=== PATIENT | male | born 1960 | race Caucasian/White ===

== ENCOUNTER 2019-12-25 17:44 | Inpatient (IN) | payer BC, SELFPAY ==
[2019-12-25 17:53] VITALS: BP 126/79; PULSE 122; RESP 18; TEMP 38.9; O2SAT 97; BMI 23.1
--- NOTE | 2019-12-25 18:18 | XR_ITS ---
WS: [id number] EXAM: AP CHEST: PORTABLE UPRIGHT DATE OF EXAM: 12/25/2019, 1818 hours COMPARISON: NONE HISTORY: Patient is 59 years old with fever. FINDINGS: The cardiac silhouette is normal in size. The mediastinal contours are normal. The pulmonary vas cularity is normal. The lungs are clear of infiltrate. There is no effusion or pneumothorax. No ac kimani bony abnormality is seen. Old postop fusion changes lower cervical spine. XR/XR chest 1V portable [id number] IMPRESSION: No acute pulmonary disease.
[2019-12-25 18:34] LABS: Basophils % 0.2 %; Eosinophils % 0.2 %; Hematocrit 33.9 % (42.0-52.0); Hemoglobin 11.2 g/dL (11.7-16.6); Lymphocytes # 0.4 10^3/uL (0.8-4.8); Lymphocytes % 5.3 %; Mean Corpuscular Volume 93.9 fL (80-94); Mean Platelet Volume 9.8 fL (7.4-10.4); Monocytes # 0.3 10^3/uL (0.2-0.9); Monocytes % 4.6 %; Neutrophils # 5.88 10^3/uL (1.8-7.7); Neutrophils % 89.4 %; Nucleated Red Blood Cells % 0 %; Platelet Count 201 10^3/cmm (130-400); Red Blood Count 3.61 10^6/uL (4.1-5.3); Red Cell Distribution Width 13.1 % (12.1-15.1); White Blood Count 6.6 10^3/uL (4.0-10.0)
[2019-12-25] MEDS: acetaminophen 500 mg Tablet 1000 MG PO (18:40)
[2019-12-25] MEDS: sodium chloride 0.9% 1,000 ML 999 ML IV (18:41)
[2019-12-25 19:04] LABS: Alanine Aminotransferase 21 U/L (0-41); Albumin Level 3.2 g/dL (3.5-5.2); Alkaline Phosphatase 159 IU/L (40-130); Anion Gap 15.7 (5-19); Aspartate Amino Transferase 12 U/L (0-40); Blood Urea Nitrogen 18 mg/dL (6-20); Calcium 8.6 mg/dL (8.5-10.5); Carbon Dioxide 20 mmol/L (22-29); Chloride 99 mmol/L (98-107); Globulin 3.1 g/dL (1.3-4.6); Glomerular Filtration Rate 115.4 mL/min (90-130); Glucose 120 mg/dL (65-115); Osmolality Calculated 275 mOsm/kg (285-295); Potassium 3.7 mmol/L (3.5-5.1); Sodium 131 mmol/L (136-145); Total Bilirubin 0.3 mg/dL (0.15-1.2); Total Protein 6.3 g/dL (6.6-8.7)
[2019-12-25 19:53] LABS: C Reactive Protein 76.5 mg/L (0.0-4.9); Ferritin 642 ng/mL (30-400)
[2019-12-25 19:56] LABS: Fibrinogen 561 mg/dL (174-498)
[2019-12-25 19:57] LABS: Add Urine Microscopic? YES; Bilirubin Urine Neg (Negative); Blood Urine 2+ (Negative); Glucose Urine UA Norm (Normal); Ketones Urine Negative (Negative); Leukocyte Esterase Urine 1+ (Negative); Nitrate Urine Negative (Negative); Protein Urine Neg (Negative); Urine Appearance Cloudy (CLEAR); Urine Color Yellow (Yellow); Urobilinogen Urine Norm (Negative); pH Urine 6 (5-7)
[2019-12-25 19:58] LABS: SARS Covid-2 Antigen Negative (Negative)
[2019-12-25 20:07] LABS: D Dimer 4.48 ug/mIFEU (0-0.59)
[2019-12-25 20:18] LABS: Bacteria Urine 4+ /hpf; RBC Urine 0-4 /hpf (0-2); Squamous Epithelial Cell Urine 0-4 /hpf (0-5); WBC Urine 15-25 /hpf (0-5)
[2019-12-25 20:19] LABS: Add Urine Culture? Yes
[2019-12-25] MEDS: cefTRIAXone 1,000 MG in sodium chloride 0.9% (plus) 50 ML 100 MG IV (20:33)
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
--- NOTE | 2019-12-25 20:41 | CTR_ITS ---
PROCEDURE INFORMATION: Exam: CT Angiography Chest With Contrast Exam date and time: 12/25/2019 8:57 PM Age: 59 years old Clinical indication: Fever; Shortness of breath; Prior surgery; Additional info: Dimer high TECHNIQUE: Imaging protocol: Computed tomographic angiography of the chest with intravenous contrast. Sagittal and coronal reformatted images were created and reviewed. 3D rendering (Not supervised by radiologist): MIP and/or 3D reconstructed images were created by the technologist. Radiation optimization: All CT scans at this facility use at least one of these dose optimization techniques: automated exposure control; mA and/or kV adjustment per patient size (includes targeted exams where dose is matched to clinical indication); or iterative reconstruction. Contrast material: OMNI 350; Contrast volume: 95 ml; Contrast route: INTRAVENOUS (IV); COMPARISON: CR XR chest 1V portable [id number] 12/25/2019 6:17 PM RADIATION DOSE METRICS: Total DLP (mGy-cm): 2133.21 FINDINGS: Pulmonary arteries: No filling defects in the pulmonary arteries to suggest pulmonary embolism. Aorta: No evidence for aortic aneurysm or aortic dissection. Thyroid: 7.8 mm low-density nodule in the right thyroid lobe. Lungs: Tracheobronchial structures are patent. Lungs are clear bilaterally. Noncalcified nodule in the right lower lobe with an average measurement of 7 mm (series 9, image 37). Pleural space: No pneumothorax. No pleural effusion. Heart: The heart is unremarkable. No cardiomegaly. No pericardial effusion. Mediastinal space: No mediastinal hematoma. No pneumomediastinum. Lymph nodes: No lymphadenopathy. Bones/joints: Stable changes consistent with previous fusion at the cervicothoracic junction. Multilevel degenerative changes of varying severity in the visualized spine. Soft tissues: No acute abnormality in the extra-abdominal soft tissues. IMPRESSION: 1. No evidence for pulmonary embolism. 2. No acute cardiopulmonary process. 3. Noncalcified nodule in the right lower lobe with an average measurement of 7 mm. For patients at low risk (minimal or absent history of smoking and of other known risk factors), recommend CT at 6-12 months, then consider CT at 18-24 months. For patients at high risk (history of smoking or of other known risk factors), recommend CT at 6-12 months, then CT at 18-24 months. (Rosalva et al., Fleischner Society, 2017) 4. 7.8 mm low-density nodule in the right thyroid lobe. No follow-up is recommended. 5. Incidental/nonacute findings are listed in the report. COMMENTS: Consistent with the [employer]'s Incidental Findings Committee white paper (J Am [employer] 2015): In patients aged 35 years and older with an incidental thyroid nodule equal to or greater than 1.[address], MRI or extrathyroidal US, further evaluation with dedicated thyroid US is recommended for patients with normal life expectancy and without comorbidities. For smaller nodules without suspicious features, no further evaluation or follow up is recommended. PROCEDURE INFORMATION: Exam: CT Abdomen And Pelvis With Contrast Exam date and time: 12/25/2019 8:57 PM Age: 59 years old Clinical indication: Fever; Shortness of breath; Prior surgery; Additional info: Dimer high TECHNIQUE: Imaging protocol: Computed tomography of the abdomen and pelvis with intravenous contrast. Sagittal and coronal reformatted images were created and reviewed. Radiation optimization: All CT scans at this facility use at least one of these dose optimization techniques: automated exposure control; mA and/or kV adjustment per patient size (includes targeted exams where dose is matched to clinical indication); or iterative reconstruction. Contrast material: OMNI 350; Contrast volume: 95 ml; Contrast route: INTRAVENOUS (IV); COMPARISON: CR XR chest 1V portable [id number] 12/25/2019 6:17 PM RADIATION DOSE METRICS: Total DLP (mGy-cm): 2133.21 FINDINGS: Liver: Hypodense focus in the liver that cannot be further characterized on the current examination. This measures 4.9 mm (series 3, image 19). Gallbladder and bile ducts: The gallbladder is unremarkable. No biliary ductal dilatation. Pancreas: The pancreas is unremarkable. No pancreatic ductal dilatation. Spleen: The spleen is unremarkable. Small splenule in the left upper quadrant. Adrenals: The right and left adrenal glands are unremarkable. Kidneys and ureters: The right kidney is unremarkable. Subcentimeter hypodense focus in the left kidney that is too small to characterize, however likely represents a small cyst. The right and left ureters are unremarkable. Stomach and bowel: Fluid within the small bowel without evidence of bowel wall thickening. The stomach is collapsed, which can limit evaluation. No focal abnormality in the stomach otherwise. Appendix: Appendix not definitely visualized. No inflammatory changes in the pericecal region however. Intraperitoneal space: No free intraperitoneal air. No ascites. No loculated fluid collections to suggest an abscess. Vasculature: No evidence for aortic aneurysm or aortic dissection. Hepatic veins, portal veins, splenic vein. Lymph nodes: No lymphadenopathy. Bladder: Diffuse, moderate wall thickening of the bladder. Small amount of air in the bladder. Reproductive: The prostate gland is mildly enlarged. Nonspecific parenchymal calcifications in the prostate gland. Bones/joints: Mild degenerative changes at both the right and left hips. Multilevel degenerative changes of varying severity in the visualized spine. Mild levoscoliosis in the visualized spine. There are subacute fractures of the right superior, medial, and posterior acetabulum, right and left inferior pubic rami, and right 10th rib.. There are postsurgical changes consistent with a right acetabular fracture repair, bilateral sacroiliac fusion, and possible fusion of the left anterior pubic ramus. Soft tissues: No acute abnormality in the extra-abdominal soft tissues. CT/CT angio chest w abd pel w con IMPRESSION: 1. Fluid within the small bowel without evidence of bowel wall thickening. This may reflect viral gastroenteritis in the appropriate clinical situation. 2. Diffuse, moderate wall thickening of the bladder. In the correct clinical setting, this may suggest cystitis. Recommend correlation with laboratory findings. Alternatively, this may be secondary to chronic outlet obstruction. 3. Small amount of air in the bladder. This may be iatrogenic related to recent catheterization. If this is not the case, then cystitis would be a consideration. Recommend clinical correlation. 4. Hypodense focus in the liver that cannot be further characterized on the current examination. In a low-risk patient, this lesion is most likely to be benign and no further follow-up is recommended. In a high-risk patient, recommend follow-up MRI in 3-6 months (or earlier if warranted by the patient's specific clinical circumstances). 5. Incidental/nonacute findings are listed in the report. COMMENTS: Consistent with the [employer]'s Incidental Findings Committee white paper (J [employer] 2018): Any incidental renal lesion less than 1 cm or classified as too small to characterize, or any incidental cystic renal lesion characterized as simple-appearing, is likely benign. No follow-up imaging is recommended for these lesions per consensus recommendations based on imaging criteria. Radiation Dose CTDIVOL = (mGy): DLP = 2133.21~2133.21 (mGy-cm)
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
[2019-12-25] MEDS: iohexol 350 mg/mL 100 mL Btl IV (21:19)
[2019-12-25] MEDS: iodixanol 320 mg/mL 100mL Btl IV (21:20)
[2019-12-25 22:29] VITALS: BP 146/90; PULSE 76; RESP 20; TEMP 36.8; O2SAT 99
[2019-12-25] MEDS: enoxaparin 40 mg/0.4 mL Syringe SUBCUT (23:35)
[2019-12-26] VITALS (7 sets, daily range): BP systolic 135–163; BP diastolic 82–95; PULSE 83–89; RESP 14–18; TEMP 36.4–37; O2SAT 89–100
[2019-12-26 06:07] LABS: Basophils % 0.3 %; Eosinophils # 0.1 10^3/uL (0.0-0.8); Hematocrit 35.7 % (42.0-52.0); Hemoglobin 11.2 g/dL (11.7-16.6); Lymphocytes # 1.6 10^3/uL (0.8-4.8); Lymphocytes % 27.2 %; Mean Corpuscular HGB Conc 31.4 g/dL (30.0-36.0); Mean Corpuscular Hemoglobin 30.9 pg (28.0-34.0); Mean Corpuscular Volume 98.3 fL (80-94); Monocytes # 0.9 10^3/uL (0.2-0.9); Monocytes % 14.9 %; Neutrophils # 3.33 10^3/uL (1.8-7.7); Neutrophils % 56.3 %; Nucleated Red Blood Cells % 0 %; Platelet Count 182 10^3/cmm (130-400); Red Blood Count 3.63 10^6/uL (4.1-5.3); Red Cell Distribution Width 13.2 % (12.1-15.1); White Blood Count 5.9 10^3/uL (4.0-10.0)
[2019-12-26 06:33] LABS: Anion Gap 11.8 (5-19); Blood Urea Nitrogen 13 mg/dL (6-20); Calcium 8.3 mg/dL (8.5-10.5); Carbon Dioxide 23 mmol/L (22-29); Chloride 103 mmol/L (98-107); Glomerular Filtration Rate 137.9 mL/min (90-130); Glucose 100 mg/dL (65-115); Osmolality Calculated 278 mOsm/kg (285-295); Potassium 3.8 mmol/L (3.5-5.1); Sodium 134 mmol/L (136-145)
[2019-12-26] MEDS: pantoprazole DR 40 mg Tablet PO (09:24)
[2019-12-26] MEDS: cefTRIAXone 1,000 MG in sodium chloride 0.9% (plus) 50 ML 100 MG IV (09:24)
[2019-12-26] MEDS: sennosides-docusate Tablet 1 TAB PO (09:24)
[2019-12-26] MEDS: aspirin 325 mg Tablet PO (09:25)
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
--- NOTE | 2019-12-26 12:29 | USCV_ITS ---
Jr Lyons Age: 59 Gender: M : 1960 Exam Date: 12/26/2019 13:08 Ordering Phys: Keegan Chen MD Technologist: Tiffanie Cotto [place] [facility] [place]: POSSIBLE DVT PROCEDURES: Venous duplex imaging was performed in bilateral lower extremities. In addition, the posterior tibial veins were evaluated. In addition, the posterior tibial and peroneal trunk were evaluated. FINDINGS: Normal 2-D Doppler and augmentation and compressibility throughout the lower extremity venous structures. Additional imaging through the proximal calf veins also reveals no thrombus. Limited evaluation of the greater saphenous vein is patent with no thrombus. CONCLUSIONS No DVT bilateral lower extremities. Dr. Linda Vasquez DO (Electronically Signed) Final Date: 27 December 2019 10:03 S
[2019-12-26 13:17] LABS: Procalcitonin 17.96 ng/mL (0-0.5)
[2019-12-26 13:18] LABS: Thyroid Stimulating Hormone 2.11 uIU/mL (0.27-4.20)
[2019-12-26 13:28] LABS: Iron 35 ug/dL (59-158); Percent Saturation 24.8 % (20-50); Total Iron Binding Capacity 141 mcg/dl; Unsaturated Iron Binding 106 ug/dL (112-347)
--- NOTE | 2019-12-26 14:52 | PC.CHAP ---
Pastoral Care Encounter/Spiritual Assessment Type of Contact [] Declined computer graphic artist visit [] Patient/Family/Request visit [] Outpatient visit [] Follow-up visit [] Physician referral [] Code/Alert [x] Routine visit [] Staff referral [] Actively dying [] Patient sleeping [] Family support [] [] Out of room [] Palliative care [] [x] Receiving care in room [] Pre-surgical visit [] Trauma [] Long length of stay [] ICU visit [] Other: Relational/Emotional Strength [] Patient feels connected with others/family/visitors/staff [x] Distress [] Loneliness/isolation [] Abandonment Spirituality of Patient [x] Person of Anya [] Attends Jain of their Anya [x] Believes in Prayer [] Reads Bible or Sikhism materials [] There are Spiritual issues to be addressed Pitch Flaker Interventions [x] Prayer [x] Active listening [x] Non-anxious presence [x] Spiritual/emotional support [] Crisis/trauma care [x] Spiritual counseling [] Bereavement support [] Provided bereavement packet [] Provided Bible/devotional materials [] Provided toy/stuffed animal, coloring book to patient or family member [] Provided Communion [] Anointing/[place] [] Salvation [x] Completed spiritual assessment [] Other: Impact on Illness or Injury [] Angry [] Fearful [] Anxious [] Often cries [] Exhaustion [x] Unable to work [] Unable to attend anabaptist [] Unable to walk/stand [] Unable to read [x] Unable to drive [] Unable to eat/drink [] Unable to sleep [] Unable to be with family [] Patient intubated [] Other: Summary Retired lots of health problems to deal with, unable to communicate her feelings, in pain Time spent with patient 10 mins
[2019-12-26 21:36] LABS: Influenza A by IFA Negative (Negative); Influenza B by IFA Negative (Negative)
[2019-12-26] MEDS: acetaminophen 325 mg Tablet 650 MG PO (22:28)
[2019-12-26] MEDS: enoxaparin 40 mg/0.4 mL Syringe SUBCUT (22:29)
[2019-12-27] VITALS (7 sets, daily range): BP systolic 131–163; BP diastolic 85–102; PULSE 88–99; RESP 12–22; TEMP 36.7–36.9; O2SAT 95–99
[2019-12-27 06:03] LABS: Basophils % 0.4 %; Eosinophils # 0.1 10^3/uL (0.0-0.8); Eosinophils % 2.1 %; Hematocrit 36.5 % (42.0-52.0); Hemoglobin 12.1 g/dL (11.7-16.6); Lymphocytes # 1.9 10^3/uL (0.8-4.8); Lymphocytes % 36.6 %; Mean Corpuscular HGB Conc 33.2 g/dL (30.0-36.0); Mean Corpuscular Hemoglobin 30.6 pg (28.0-34.0); Mean Corpuscular Volume 92.4 fL (80-94); Mean Platelet Volume 9.8 fL (7.4-10.4); Monocytes # 0.5 10^3/uL (0.2-0.9); Monocytes % 10.3 %; Neutrophils # 2.57 10^3/uL (1.8-7.7); Neutrophils % 50.2 %; Nucleated Red Blood Cells % 0 %; Platelet Count 235 10^3/cmm (130-400); Red Blood Count 3.95 10^6/uL (4.1-5.3); Red Cell Distribution Width 12.7 % (12.1-15.1); White Blood Count 5.1 10^3/uL (4.0-10.0)
[2019-12-27 06:31] LABS: Alanine Aminotransferase 16 U/L (0-41); Albumin Level 3.3 g/dL (3.5-5.2); Alkaline Phosphatase 130 IU/L (40-130); Anion Gap 14.8 (5-19); Aspartate Amino Transferase 10 U/L (0-40); Blood Urea Nitrogen 13 mg/dL (6-20); Calcium 8.5 mg/dL (8.5-10.5); Carbon Dioxide 23 mmol/L (22-29); Chloride 99 mmol/L (98-107); Globulin 3.3 g/dL (1.3-4.6); Glomerular Filtration Rate 137.9 mL/min (90-130); Glucose 101 mg/dL (65-115); Osmolality Calculated 276 mOsm/kg (285-295); Potassium 3.8 mmol/L (3.5-5.1); Sodium 133 mmol/L (136-145); Total Bilirubin 0.3 mg/dL (0.15-1.2); Total Protein 6.6 g/dL (6.6-8.7)
--- NOTE | 2019-12-27 06:33 | PC.NURSE ---
Patient attempted to have a bm several times with no success. Patients was nauseous without vomiting and feels like he needs to have a bm.
[2019-12-27] MEDS: cefTRIAXone 1,000 MG in sodium chloride 0.9% (plus) 50 ML 100 MG IV (09:36)
[2019-12-27] MEDS: sennosides-docusate Tablet 1 TAB PO (09:37)
[2019-12-27] MEDS: pantoprazole DR 40 mg Tablet PO (09:37)
[2019-12-27] MEDS: aspirin 325 mg Tablet PO (09:37)
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
[2019-12-27] MEDS: acetaminophen 325 mg Tablet 650 MG PO (18:42)
[2019-12-27] MEDS: sodium chlor 0.9% + KCl 20 mEq 20 MEQ/1,000 ML BAG 50 MEQ IV (20:27)
[2019-12-27] MEDS: enoxaparin 40 mg/0.4 mL Syringe SUBCUT (23:28)
[2019-12-28 04:00] VITALS: BP 149/90; PULSE 97; RESP 12; TEMP 36.9; O2SAT 96
[2019-12-28 05:53] LABS: Basophils % 0.4 %; Eosinophils # 0.1 10^3/uL (0.0-0.8); Eosinophils % 1.8 %; Hematocrit 39.2 % (42.0-52.0); Hemoglobin 12.9 g/dL (11.7-16.6); Lymphocytes # 2.1 10^3/uL (0.8-4.8); Lymphocytes % 30.7 %; Mean Corpuscular HGB Conc 32.9 g/dL (30.0-36.0); Mean Corpuscular Hemoglobin 30.4 pg (28.0-34.0); Mean Corpuscular Volume 92.5 fL (80-94); Mean Platelet Volume 9.7 fL (7.4-10.4); Monocytes # 0.5 10^3/uL (0.2-0.9); Neutrophils # 3.92 10^3/uL (1.8-7.7); Neutrophils % 58.5 %; Nucleated Red Blood Cells % 0 %; Platelet Count 279 10^3/cmm (130-400); Red Blood Count 4.24 10^6/uL (4.1-5.3); Red Cell Distribution Width 12.9 % (12.1-15.1); White Blood Count 6.7 10^3/uL (4.0-10.0)
[2019-12-28 07:48] VITALS: BP 148/99; PULSE 93; RESP 18; TEMP 36.8; O2SAT 98
[2019-12-28 08:00] VITALS: BP 148/99; PULSE 93; RESP 18; TEMP 36.8
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
[2019-12-28] MEDS: sennosides-docusate Tablet 1 TAB PO (10:06)
[2019-12-28] MEDS: aspirin 325 mg Tablet PO (10:07)
[2019-12-28] MEDS: cefTRIAXone 1,000 MG in sodium chloride 0.9% (plus) 50 ML 100 MG IV (10:07)
[2019-12-28] MEDS: pantoprazole DR 40 mg Tablet PO (10:07)
[2019-12-28 11:47] VITALS: BP 148/99; PULSE 93; RESP 18; TEMP 36.8
== END 2019-12-28 11:55 | disposition home health service (06) | DRG 872 ==
LOC: ER 18:10 → MEDSURG 20:47
PROVIDERS: Admitting Provider Internal Medicine; Emergency Provider Emergency Medicine; Visit Provider Student in an Organized Health Care Education/Training Program
DX: A41.9 Sepsis, unspecified organism (principal); N39.0 Urinary tract infection, site not specified; R56.1 Post traumatic seizures; Z96.649 Presence of unspecified artificial hip joint; R31.9 Hematuria, unspecified; Z87.820 Personal history of traumatic brain injury; V89.2XXD Person injured in unspecified motor-vehicle accident, traffic, subsequent encounter; S32.9XXD Fracture of unspecified parts of lumbosacral spine and pelvis, subsequent encounter for fracture with routine healing
CPT/HCPCS: 12345; 36415; 71045; 71275; 74177; 80048; 80053; 81000; 81001; 82728; 83540; 83550; 83605; 84145; 84443; 85025; 85378; 85384; 86140; 87040; 87077; 87086; 87186; 87426; 87641; 87804; 93970; 94664; 96372; 97110; 97162; 97530; 99282; J0696; J1650; J7030; Q9967

== ENCOUNTER → 2020-01-03 09:57 | Outpatient (BNVA) | payer BC, SELFPAY | PROVIDERS: Visit Provider Nurse Practitioner Family | DX: N39.0 Urinary tract infection, site not specified (principal); R31.9 Hematuria, unspecified | CPT/HCPCS: 81003 ==

== ENCOUNTER 2020-02-05 14:21 | Outpatient (CLI) | payer BC, SELFPAY ==
--- NOTE | 2020-02-05 14:30 | MR_ITS ---
WS: [id number] MRI RIGHT KNEE HISTORY: S83.519A Sprain of anterior cruciate ligament COMPARISON: None available. Anterior cruciate ligament: Mild increased signal in the ACL but no tear identified. Posterior cruciate ligament: High-grade tear of the posterior cruciate ligament. There is increased T 2 signal throughout the ligament. More prominent thickening at the base of the PCL. Medial collateral ligament: Intact. There is increased T2 signal along the medial femoral condyle pos terior to the MCL. This abnormal signal is in the location of the adductor jacey tendon. Posterior lateral corner structures: Intact. Medial menisci: There is blunting of the posterior horn. Increased soft tissue thickening and abnorma l signal towards the meniscal root extending toward the base of the PCL. Suspect is probably a menisc al fragment adjacent to the PCL. Lateral meniscus: Abnormal signal in the posterior horn towards the meniscal root. Extensor mechanism: Distal quadriceps tendon and patellar tendons are intact. Fluid and soft tissue: Small joint effusion. No Watkins's cyst. Osseous and articular structures: Patellofemoral compartment: Moderate thinning of cartilage over the medial facet. No marrow edema or fracture. Small subchondral lesion over the medial facet. Medial compartment: Mild narrowing with loss of cartilage. Most significant fraying and loss of carti antonia involves the posterior femoral condyle. Lateral compartment: Mild narrowing of the lateral compartment. There is multilevel areas of cartilag e fraying and tears. Small amount of edema along the lateral tibial plateau. No fractures. MR/MR knee RT wo con* [id number] IMPRESSION: 1. Abnormal signal at the base of the PCL towards the meniscal roots. Both the medial and lateral meniscal roots are abnormal. I suspect there could be some meniscal fragments at the base of the PCL. 2. Moderate tricompartment osteoarthritis. Most significant loss of cartilage and joint space narrowing is at the lateral compartment. 3. Abnormal signal throughout the PCL and findings suspicious for high-grade t ear. 4. Partial insertion site tear at the adductor jacey.
== END 2020-02-05 14:22 | disposition home or self-care (01) ==
LOC: RADSHAW 14:24
PROVIDERS: Visit Provider Family Medicine
DX: S83.519A Sprain of anterior cruciate ligament of unspecified knee, initial encounter (principal); S86.811A Strain of other muscle(s) and tendon(s) at lower leg level, right leg, initial encounter; X58.XXXA Exposure to other specified factors, initial encounter; M17.11 Unilateral primary osteoarthritis, right knee
CPT/HCPCS: 73721

== ENCOUNTER 2020-02-18 06:00 | Outpatient (RCR) | payer BC, SELFPAY | END 2020-03-09 23:59 | disposition home or self-care (01) | LOC: WPT 06:00 | PROVIDERS: PCP Nurse Practitioner Family; Referring Provider Nurse Practitioner; Visit Provider Nurse Practitioner | DX: S32.409D Unspecified fracture of unspecified acetabulum, subsequent encounter for fracture with routine healing (principal); S32.810D Multiple fractures of pelvis with stable disruption of pelvic ring, subsequent encounter for fracture with routine healing; S32.10XD Unspecified fracture of sacrum, subsequent encounter for fracture with routine healing; V00-Y99 External causes of morbidity; M25.561 Pain in right knee | CPT/HCPCS: 97110; 97163 ==

== ENCOUNTER 2020-03-10 06:00 | Outpatient (RCR) | payer BC, SELFPAY | END 2020-04-09 23:59 | disposition home or self-care (01) | LOC: WPT 06:00 | PROVIDERS: PCP Nurse Practitioner Family; Referring Provider Nurse Practitioner; Visit Provider Nurse Practitioner | DX: S89.90XD Unspecified injury of unspecified lower leg, subsequent encounter (principal); S32.409D Unspecified fracture of unspecified acetabulum, subsequent encounter for fracture with routine healing; S32.810D Multiple fractures of pelvis with stable disruption of pelvic ring, subsequent encounter for fracture with routine healing; S32.10XD Unspecified fracture of sacrum, subsequent encounter for fracture with routine healing; X58.XXXD Exposure to other specified factors, subsequent encounter | CPT/HCPCS: 97110 ==

== ENCOUNTER → 2020-03-31 10:12 | Outpatient (BNVA) | payer BC, SELFPAY | PROVIDERS: PCP Nurse Practitioner Family; Visit Provider Family Medicine | DX: Z71.1 Person with feared health complaint in whom no diagnosis is made (principal) | CPT/HCPCS: 86592; 87491; 87591; 87806 ==

== ENCOUNTER 2020-04-10 06:00 | Outpatient (RCR) | payer BC, SELFPAY | END 2020-05-10 23:59 | disposition home or self-care (01) | LOC: WPT 06:00 | PROVIDERS: PCP Nurse Practitioner Family; Referring Provider Nurse Practitioner; Visit Provider Nurse Practitioner | DX: S89.90XD Unspecified injury of unspecified lower leg, subsequent encounter (principal); S32.409D Unspecified fracture of unspecified acetabulum, subsequent encounter for fracture with routine healing; S32.810D Multiple fractures of pelvis with stable disruption of pelvic ring, subsequent encounter for fracture with routine healing; S32.10XD Unspecified fracture of sacrum, subsequent encounter for fracture with routine healing; X58.XXXD Exposure to other specified factors, subsequent encounter | CPT/HCPCS: 97110; 97116 ==

== ENCOUNTER 2021-06-25 09:09 | Outpatient (CLI) | payer OTHER, SELFPAY ==
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
== END 2021-06-25 09:10 | disposition home or self-care (01) ==
PROVIDERS: PCP Nurse Practitioner Family; Visit Provider Student in an Organized Health Care Education/Training Program
DX: S32.401A Unspecified fracture of right acetabulum, initial encounter for closed fracture (principal); X58.XXXA Exposure to other specified factors, initial encounter
CPT/HCPCS: 72192

== ENCOUNTER → 2021-07-05 12:05 | Outpatient (BNVA) | payer OTHER, SELFPAY | PROVIDERS: PCP Nurse Practitioner Family; Visit Provider Nurse Practitioner Family | DX: R30.0 Dysuria (principal); N39.0 Urinary tract infection, site not specified | CPT/HCPCS: 81003; 87086 ==

== ENCOUNTER → 2021-08-24 00:01 | Outpatient (BNVA) | payer OTHER, SELFPAY | PROVIDERS: PCP Nurse Practitioner Family; Visit Provider Nurse Practitioner | DX: R05.9 Cough, unspecified (principal) | CPT/HCPCS: 87635 ==

== ENCOUNTER → 2021-08-25 17:20 | Outpatient (BNVA) | payer OTHER, SELFPAY | PROVIDERS: PCP Nurse Practitioner Family; Visit Provider Nurse Practitioner | DX: R05.9 Cough, unspecified (principal) | CPT/HCPCS: 87801 ==

== ENCOUNTER → 2023-12-12 10:52 | Outpatient (BNVA) | payer MEDICARE, SELFPAY | PROVIDERS: PCP Nurse Practitioner; Visit Provider Nurse Practitioner Family | DX: S46.911A Strain of unspecified muscle, fascia and tendon at shoulder and upper arm level, right arm, initial encounter (principal); M19.011 Primary osteoarthritis, right shoulder; R07.9 Chest pain, unspecified; X58.XXXA Exposure to other specified factors, initial encounter | CPT/HCPCS: 73030 ==

== ENCOUNTER → 2023-12-14 09:10 | Outpatient (BNVA) | payer MEDICARE, SELFPAY | PROVIDERS: PCP Nurse Practitioner; Visit Provider Nurse Practitioner Family | DX: Z12.5 Encounter for screening for malignant neoplasm of prostate (principal); Z13.6 Encounter for screening for cardiovascular disorders; Z79.899 Other long term (current) drug therapy | CPT/HCPCS: 80053; 80061; 81003; 83036; 84443; 85025; G0103 ==

== ENCOUNTER → 2024-03-13 14:24 | Outpatient (BNVA) | payer MEDICARE, SELFPAY | PROVIDERS: PCP Nurse Practitioner Family; Visit Provider Nurse Practitioner Family | DX: R05.9 Cough, unspecified (principal) | CPT/HCPCS: 87426 ==